=== PATIENT | female | born 1990 | race Hispanic/Latino ===

== ENCOUNTER 2020-05-26 08:30 | Inpatient (IN) | payer MEDICAID, SELFPAY ==
[2020-05-26 09:23] VITALS: BMI 29.1
[2020-05-26] MEDS ORDERED: Butorphanol Tartrate 1 MG/ML VIAL SLOW IVP PRN (09:29)
[2020-05-26] MEDS ORDERED: Butorphanol Tartrate 1 MG/ML VIAL ONE (09:31)
[2020-05-26] MEDS ORDERED: hydrALAZINE 20 MG/ML VIAL SLOW IVP PRN ×3 (09:40→13:15)
[2020-05-26 10:08] LABS: Amnisure Test RUPTURE DETECTED (No Rupture)
[2020-05-26 10:10] LABS: Amnisure Internal Control QC ACCEPTABLE (ACCEPTABLE)
[2020-05-26] MEDS ORDERED: Lidocaine 1% (PF) 30 ML VIAL ONE (10:20)
[2020-05-26] MEDS ORDERED: NS w/ Oxytocin 30 units 500 ML ONE ×3 (10:20→12:44)
[2020-05-26] MEDS ORDERED: Methylergonovine 0.2 MG/ML VIAL IM PRN (10:21)
[2020-05-26] MEDS ORDERED: NS / Oxytocin 40 units/1000ml 1,000 ML IV PRN (10:21)
[2020-05-26] MEDS ORDERED: Lidocaine 1% (PF) 30 ML VIAL SC PRN (10:21)
[2020-05-26] MEDS ORDERED: Promethazine HCl 25 MG/ML VIAL IM PRN (10:21)
[2020-05-26] MEDS ORDERED: Acetaminophen 500 MG TAB PO PRN (10:21)
[2020-05-26] MEDS ORDERED: Ibuprofen 800 MG TAB PO PRN (10:21)
[2020-05-26] MEDS ORDERED: Misoprostol 200 MCG TAB PR PRN (10:21)
[2020-05-26] MEDS ORDERED: Ondansetron PF 4 MG/2 ML Vial IVP PRN (10:21)
--- NOTE | 2020-05-26 10:22 | PDOC.BPN ---
- Brief Progress Note Exam now 8-9cm, positive. Direct admit.
--- NOTE | 2020-05-26 10:22 | HP ---
TIME: Now 0949 hours. I saw the patient around 0935 hours in LDR bed 5. The patient is from the Clinic. The residents on-call were first responders and I have seen and evaluated the patient as well as discussed this case with them. CHIEF COMPLAINT: Contractions and possible leakage of fluid since last night and again this morning as a slight trickle, but no gush of fluid. Her contractions about every 5 minutes. HISTORY OF PRESENT ILLNESS: This is a 29-year-old, G4, P1-0-1-1 with one ectopic in the past, who is now at 39 weeks and 2 days by sure criteria. She has a 19-week ultrasound that agrees with her last menstrual period. She complains with the above. She presents with the above chief complaint. She also has good movement, but denies any vaginal bleeding, fevers, chills, or sick contacts. She states that her contractions are about every 5 minutes. She has persistent moisture/possible leakage since last night and again today, but no large gush of fluid. REVIEW OF SYSTEMS: GENERAL: No sick contacts. No fevers. No chills. PULMONARY: No shortness of breath. CARDIOVASCULAR: No chest pain. ABDOMEN: Gravid with contractions. : No dysuria. EXTREMITIES: No unusual leg swelling or pain. PAST OB HISTORY: Significant for one previous term delivery. She has one miscarriage and one ectopic in the past. PAST MEDICAL HISTORY: Significant for latent TB, which was diagnosed several years ago and has had followup. MEDICATIONS: Include her vitamins. PSYCHOSOCIAL HISTORY: Positive for anxiety, but she does not take any medications and is well controlled according to her. ALLERGIES: NONE. SOCIAL HISTORY: Negative for alcohol, tobacco, or drug use. LABORATORY DATA: Her GBS is negative. PHYSICAL EXAMINATION: Her blood pressure is 117/87, pulse is 95. She is afebrile. She is in no acute distress, but appears to have some contraction discomfort. Her cervix is 3 cm dilated, 100% effaced, 0 station. There is no vulvovaginal lesions, and grossly, there is no evidence of rupture. Sterile speculum examination is about to be performed by the residents and AmniSure will be collected due to her complaint of rupture. MONITORING: I have evaluated the patient's monitoring strip and find the baseline to be around 140. There are accelerations with moderate variability. She had one early deceleration with contraction, but otherwise the strip is without decelerations. It is category I. Contractions are about every 3 to 5 minutes, but they have seem to be spacing out on tocodynamometer. Again, this is the external monitoring interpretation. ASSESSMENT: This is a 29-year-old multigravida at 39 weeks and 2 days, GBS negative, with latent labor and possible rupture. PLAN: 1. Sterile spec exam and AmniSure. 2. We will watch her for 2 hours, but we will likely keep her anyway after that because she is 3 cm, with contractions, and has a concern of rupture. 3. If she is obviously ruptured on speculum examination, then we will admit directly. 4. The patient is at the Clinic and I have evaluated her with the residents. Job ID: [id number] [facility]ICBrandon
--- NOTE | 2020-05-26 10:24 | PDOC.LDHP ---
Labor and Delivery H&P Chief complaint: contractions, abdominal pain HPI: Patient reports ctx that started around 530 this AM. Endorses leakage of blood tinged clear/white fluid that started last night, stopped, and started again this AM. reports good FM, Denies nithin VB. Current gestational age (weeks): 39 (39.2 weeks) Due date: 05/31/20 Dating criteria: last menstrual period, second trimester ultrasound (19.3 wk US) Grav: 4 Para: 1 OB History Details: SAB X1 in 2018, Ectopic X1 in 2014 Current complications: none Abnormal US findings: Yes (Anterior placenta, resolved) Past Medical History: Latent TB in 2016, anxiety, SAB, ectopic Current medications: pre-jose vitamins Previous surgical history: none Allergies/Adverse Reactions: Allergies Allergy/AdvReac Type Severity Reaction Status Date / Time No Known Drug Allergies Allergy Verified 05/26/20 09:24 Social history: drug use (Previous MJ use) - Physical Exam Vital signs reviewed and normal: yes General: breathing through contractions Heart: RRR Lungs: nonlabored breathing Abdomen: NTTP Extremeties: no edema FHT: category 2, early decelerations, variability present Derry contractions every: 5-8 mins - Vaginal Exam cm dilated: 3 (Sterile speculum exam showing significant white discharge with pooling of clear fluid) Effacement: 100% Station: 0 - OB Labs Blood type: O RH: positive Antibody Screen: negative HIV: negative RPR: negative HEPSAg: negative 3 hour GTT: 84/157/88 GBS: negative Rubella: immune Additional Labs: HCV, progenity negative pap smear NILM 11/2019 - Assessment 29 yo Ectopic X1 @ 39.2 weeks presenting for ctx Labor r/o - Patient likely with ROM considering LOF and pooling on SSE, will get Amnisure to confirm - Monitor for 2 hours, recheck SVE (Initial: /-1) - Continuous monitoring - Patient scheduled for induction tomorrow 05/[address] Carbajal. - Plan Plan: observation in L&D
[2020-05-26] MEDS ORDERED: Lactated Ringer's 1,000 ML IV SCH (10:30)
--- NOTE | 2020-05-26 11:30 | PDOC.BPN ---
- Brief Progress Note OBGYN Delivery Note (Faculty) PROCEDURE: Controlled Faculty: Solomon Valenzuela (delivered by): Kaylin Bello Findings: I was present and supervised the controlled by Mani Berrios and Ace. Baby had caput at +5 for about 2 minutes allowing perineal stretch. Loose NC X1. Baby came out initially stuneed with NICU eval in room. Body was slow to emerge from the vaginal channel after shoulders due to maternal inability to push and tight surrounding tissue. Baby did not require resus. Quickly had vigorous cry and spont movement by time of life 2 minutes or so. Possible 1st degree lac noted, no repair needed. Cord gas sent for initial stunned state/terminal mec. EBL minimal/nortmal (QBL pending)
[2020-05-26 11:41] LABS: Actual Bicarbonate (HCO3v) 21 mEq/L (22-28); Base Excess -4.6 mEq/L (-2.0 to +3.0); pH (Cord, venous) 7.33 (7.32-7.43)
[2020-05-26 11:43] LABS: Actual Bicarbonate (HCO3a) 24.3 mEq/L (22-28)
--- NOTE | 2020-05-26 12:07 | PDOC.OPDEL ---
OB Operative/Delivery Note Delivery Dr/Surgeon: Dr. Yash Florentino Assist: Dr. Carbajal attending Pre-Delivery Diagnosis: active labor, ruptured membrane Procedure/Post Delivery Dx: spontaneous vaginal delivery Weeks gestation: 39 (39.2) Anesthesia: none - Additional Findings/Plan Placenta delivered: spontaneous Repaired Obstetrical Laceration: 1st degree (perineal) Estimated blood loss: 250 cc Compilations/Other Findings: Delivering Physician: Yash Florentino Attending Dr. Carbajal Procedure: Spontaneous Vaginal Delivery Anesthesia: none EBL: 250 ml Pre-op Diagnosis: 1. Term intrauterine in labor 2. SROM Post-op Diagnosis: 1. Term intrauterine , delivered 2. same as above Indications: A 29y/o female presents for labor rule out, progressing to active labor Delivery Note: This is 29yo F @ 39.2 wks who delivered a viable M infant at 1118. Following an uneventful antepartum course, a M was delivered over an intact perineum in the OA position. Anterior Shoulder and then remainder of the body delivered. Nuchal cord X 1 was delivered through. Baby had limited cry, delayed cord clamping not performed, cord clamped, baby transferred to warmer and cord blood was collected and cord was cut. Placenta delivered intact with a 3 vessel cord noted. Fundal massage was performed and the fundus was firm. The cervix and vagina were inspected and found to be free of lacerations. Infant went to nursery in good condition for routine care. Apgars were 7/9 at 1 & 5 minutes, respectively. Will obtain cord blood gas studies. Patient tolerated delivery well and went to after routine recovery/care. Post delivery plan: routine recovery
[2020-05-26 12:08] LABS: Mean Corpuscular HGB CONC 34.4 g/dL (32.0-36.0); Mean Corpuscular Hemoglobin 31.7 pg (27.0-31.0); Mean Corpuscular Volume 92.3 fL (78.0-98.0); Mean Platelet Volume 9.1 fL (7.4-10.4); Platelet Count 167 thou/uL (130-400); RBC Distribution Width 11.5 % (11.5-14.5); Red Blood Cell (RBC) Count 3.45 mill/uL (4.20-5.40)
[2020-05-26 12:50] LABS: HBSAg Index 0.24 S/CO (0-0.99); Hep B Surf Ag Non-Reactive S/CO (NonReactive)
[2020-05-26 12:54] LABS: Syphilis Antibody Nonreactive (Nonreactive); Syphilis Antibody Index 0.03 S/CO (<1.00 Non-Reactive)
[2020-05-26] MEDS ORDERED: Milk Of Magnesia 30 ML UDCUP PO PRN (13:15)
[2020-05-26] MEDS ORDERED: Preparation H Ointment 28 GM TUBE PR PRN (13:15)
[2020-05-26] MEDS ORDERED: Methylergonovine 0.2 MG TAB PO PRN (13:15)
[2020-05-26] MEDS ORDERED: Adacel (T-DAP) 0.5 ML SYRINGE IM ONE (13:15)
[2020-05-26] MEDS ORDERED: diphenhydrAMINE 25 MG CAP PO PRN (13:15)
[2020-05-26] MEDS ORDERED: Lanolin Ointment 7 GM TUBE TOP PRN (13:15)
[2020-05-26] MEDS ORDERED: Bisacodyl 10 MG SUPP PR PRN (13:15)
[2020-05-26] MEDS ORDERED: NS / Oxytocin 40 units/1000ml 1,000 ML IV SCH (13:15)
[2020-05-26] MEDS ORDERED: Benzocaine-Menthol 82.5 ML CAN TOP PRN (13:15)
[2020-05-26] MEDS: Ferrous Sulfate 325 MG TAB PO SCH (16:50)
[2020-05-26 18:06] LABS: SARS-CoV-2 MS2 Positive; SARS-CoV-2 N Gene Negative; SARS-CoV-2 S Gene Negative; SARS-CoV-2 by NAA Not Detected (NotDetected); SARS-CoV-2 orf1ab Negative
[2020-05-26] MEDS: Docusate Calcium (SURFAK) 240 MG CAP PO SCH (20:20)
[2020-05-27] MEDS: Ibuprofen 800 MG TAB PO SCH ×2 (06:36→14:03)
--- NOTE | 2020-05-27 06:56 | PDOC.PP ---
Post Progress Note Post Day #: 1 Subjective: Doing well. Ate last night. Tolerated food well. PO intake tolerated: yes Flatus: no Ambulation: yes Vital Signs (12 hours) Temp Pulse Resp BP 05/27/20 05:00 97.8 F 84 16 109/53 L 05/27/20 00:25 98.2 F 80 15 96/55 L 05/26/20 20:10 98.8 F 91 15 108/57 L Weight Weight 58.967 kg - Physical Examination General: NAD Cardiovascular: no m/r/g, RRR Respiratory: clear to auscultation bilaterally Abdominal: lochia (downtrending), no distention, appropriately TTP Skin: no rash Neurological: no gross focal deficits Psychiatric: A&Ox3, normal affect Result Diagrams: 05/26/20 11:51 Additional Labs: Post Labs Hep Bs Antigen Non-Reactive S/CO (NonReactive) 05/26/20 11:51 Blood Type O POSITIVE 05/26/20 12:31 - Assessment/Plan G4 now P2012 delivered at 39.2 wga PPD#1 s/p - meeting milestones - possible PM discharge pending baby's status - continue pain control w/ tylenol & ibuprofen Dispo: inpatient, [facility] packer, possible d/c today. OBGYN Faculty: Patient case reviewed, eval done. Agree with plan for possible PM discharge
[2020-05-27 07:41] VITALS: BP 98/50; TEMP 98.3
[2020-05-27] MEDS ORDERED: FLU VACC QS2020-21(6MOS UP)/PF 60 MCG/0.5 ML SYRINGE IM ONE (09:00)
[2020-05-27] MEDS ORDERED: Prenatal Vitamin 1 TAB PO SCH (09:00)
[2020-05-27] MEDS: Docusate Calcium (SURFAK) 240 MG CAP PO SCH (09:28)
[2020-05-27] MEDS: Ferrous Sulfate 325 MG TAB PO SCH (09:28)
--- NOTE | 2020-05-30 14:32 | PDOC.DS.DS ---
Provider - Provider Date of Admission: 05/26/20 10:10 Date of Discharge: 05/27/20 Admitting Provider: Han Carbajal MD Consultations: None Primary Care Physician: CLINIC PROCEDURES: Alice Berrios MD Course - Hospital Course Hospital Course: 29 yo at 39.2 wga arrived in active labor at 8cm. Precipitously delivered via on 05/26/2020 at 11:16. No lacerations. No complications. Routine care, stable on day of discharge. - Labs Lab Results: 05/26/20 11:51 - Physical Exam Vitals: Weight Weight 58.967 kg Physical Exam: The patient was seen and examined on the day of discharge. Problem - Discharge Plan Assessment: Stable course. Plan of Treatment: Follow up at [facility] in 2 weeks. Plan - Discharge Medications Prescriptions: Lanolin Ointment [Lansinoh Ointment] 1 gm TOP PRN PRN #1 tube PRN Reason: Breast Care Ibuprofen [Motrin] 800 mg PO Q8HR #10 tab Home Medications: Medication Instructions Recorded Confirmed Type Ferrous Sulfate 325 mg PO DAILY 05/26/20 05/26/20 History Vits96/Iron Fum/Folic 1 tab PO DAILY 05/26/20 05/26/20 History [ Tablet] Ibuprofen [Motrin] 800 mg PO Q8HR #10 tab 05/27/20 Rx Lanolin Ointment [Lansinoh 1 gm TOP PRN PRN #1 tube 05/27/20 Rx Ointment] Allergies: No Known Drug Allergies Allergy (Verified 05/26/20 09:24) - Discharge Instructions Activity:: No Restrictions Nourishment:: No Restrictions Therapies:: Not Applicable Equipment/Supplies:: Not Applicable IV Therapy:: Not Applicable - Follow up Plan Referrals: PROCEDURES, CLINIC [Primary Care Provider] - 14 Days (follow up in 2 weeks at the clinic. call to schedule appt if not already scheduled.) Disposition: HOME Quality - Care Measures CORE MEASURES:: N/A - Stroke/TIA Did you prescribe antithrombotic therapy?: No Specify reason for no DC antithrombotic therapy: Treatment not indicated
== END 2020-05-27 15:55 | disposition home or self-care (01) | DRG 807 ==
LOC: L&D/OP 08:30 → L&D 10:10 → 3SW 14:53
PROVIDERS: ADMIT Obstetrics & Gynecology; ATTEND Obstetrics & Gynecology
PROC: 10E0XZZ Delivery of Products of Conception, External Approach (ICD-10-PCS; principal; 2020-05-26)
PROC: 0HQ9XZZ Repair Perineum Skin, External Approach (ICD-10-PCS; 2020-05-26)
DX: O62.3 Precipitate labor (principal); Z37.0 Single live birth; Z3A.39 39 weeks gestation of pregnancy; O70.0 First degree perineal laceration during delivery; Z20.828 Contact with and (suspected) exposure to other viral communicable diseases
CPT/HCPCS: 36415; 82805; 84112; 85027; 86780; 86850; 86900; 86901; 87340; 87635; 99285; J0595; J2590; U0003